=== PATIENT | male | born 1955 | race Caucasian/White ===

== ENCOUNTER 2025-02-26 07:36 | Observation (INO) ==
--- NOTE | 2024-12-29 08:33 | Anesthesiology Consultation ---
Date of Service December 29, 2024 Assessment & Plan (1) Encounter for pre-operative examination: - surgery to be cancelled until patient has repeat CTA head and neck and [place] neurology determination on if he needs to see a vascular specialist prior to proceeding with elective surgery per discussion with Dr. Valentine. Patient made aware, he states will contact his neurology office. Surgeon's office and OR made aware. - repeat CTA head and neck not in [place] E[place]. I contacted patient who states he does not believe testing was updated, cannot provide another potential location it may have been done. - cardiology office visit 10/12/24 [place]: "...Benign essential hypertension: Blood pressure is at target. Cannot tolerate beta-ariane. Will continue with valsartan 40 mg p.o. twice daily. History of aortic valve replacement with bioprosthetic valve: The valve replacement is likely functioning normally. I am going to have him get an echo since it has been more than a year and he has an upcoming surgery. Chronic combined systolic and diastolic heart failure: No evidence of volume overload. Mild LV dysfunction. Continue valsartan 40 mg p.o. twice daily. Has not required a loop diuretic. I am going to look into his prior beta-ariane use and determine his intolerance. He could not recall and his was not present to assist. We may be able to try an alternative beta-ariane at a low dose...Coronary artery disease: Status post CABG for multivessel disease. No angina. At target heart rate and blood pressure. He is on guideline directed medical therapy (except for beta-ariane)...Thoracic ascending aortic aneurysm: I will have him undergo chest CTA for surveillance... Patient completed stress echocardiogram as recommended. There was no ischemia on the stress portion of the test. There were resting echo changes involving the inferior myocardium. This would be consistent with what I suspected was a prior infarct. EF is 40 to 45%. Patient is to undergo inguinal hernia repair. This is considered an intermediate risk surgery with regard to myocardial ischemia. His stress test demonstrates low likelihood of myocardial ischemia at this time. He does have mildly reduced EF but otherwise no high risk features. Therefore, per AHA/ACC guidelines he should proceed with surgery as planned. We strongly recommend perioperative use of beta-ariane. However, he has been intolerant to metoprolol in the past. I recommend we use atenolol 25 mg one half tab daily to be given the day before, day of, and day after his surgery. His valsartan can be held or reduced by 50% for the day before, day of, and day after surgery..." - neurology office visit 01/17/24 [place]: "...Small vessel disease, cerebrovascular: h/o TIA, SVID, mod left vertebral artery stenosis, poss carotid outpouching. repeat CTA head and neck, may need to see Vascular. no new symptoms..." - Per ophthalmologist on 12/25/24: No known infectious disease contacts, current infectious disease symptoms in past 10 days or COVID positive test result in the past 30 days. Chart Review Chart Review: Pending: Refer to Additional Notes / Consult section and Patient NOT seen in Pre Admission Testing History Surgery Operation Date: 01/01/25 08:45 Proposed Procedures p Laparoscopic Left Recurrent Inguinal Hernia Repair with Mesh - Sony Marley MD Height/Weight Height: 5 ft 10 in Weight: 67.132 kg Allergies Allergy/AdvReac Type Severity Reaction Status Date / Time amoxicillin Allergy Unknown Hives Verified 12/25/24 07:32 Medications Home Medications Medication Instructions Recorded Confirmed Last Taken aspirin 81 mg tablet,delayed 81 mg PO QAM 02/26/22 12/25/24 06/14/23 release valsartan 40 mg tablet 40 mg PO BID #180 tabs 11/14/24 12/25/24 Unknown atorvastatin 40 mg tablet 40 mg PO QPM #90 tabs 12/13/24 12/25/24 Unknown sildenafil 50 mg tablet (Viagra) 50 mg PO DAILY PRN Erectile 12/25/24 12/25/24 Unknown Dysfunction Past Medical History Medical History (Updated 12/29/24 @ 08:46 by Jocy Persaud PA-C) Anxiety CAD (coronary artery disease) CABG x 4 2021, follows with Dr. To. Heart valve disease s/p 2021 TAVR History of cerebral infarction incidental finding. no residual. History of TIA (transient ischemic attack) 01/2023 HLD (hyperlipidemia) HTN (hypertension) Ischemic cardiomyopathy Poor historian Silent myocardial infarction hx Small vessel disease, cerebrovascular "TIA, SVID, mod left vertebral artery stenosis, poss carotid outpouching" per [place] neuro-see head and neck CTA from 2022 Thoracic aortic aneurysm per record. pt unable to confirm. Past Surgical History Surgical History (Updated 12/29/24 @ 08:30 by Jocy Persaud PA-C) History of aortic valve replacement Jan 2022 History of left cataract extraction History of quadruple bypass 01/2022. History of right cataract extraction Hx of inguinal hernia repair Social History Smoking Status: Current every day smoker Smoking cigarettes per day: 9-10 cigs per day > advised Do You Dip or Chew Tobacco: No Hx Alcohol Use: No Hx Substance Use: Yes substance use type: marijuana Substance Use Type Other:: advised npo Testing Laboratory Results 12/28/24 WBC: 8.3 H/H: 14/45 PLATELETS: 230,000 SODIUM: 140 POTASSIUM: 4.5 CHLORIDE: 105 CO2: 22 BUN: 22 CREATININE: 1 GLUCOSE: 104 AST: 24 Alk phos: 63 ALT: 26 Electrocardiogram Date: 10/12/24 Sinus rhythm with PACs, rate 74 bpm Left axis deviation RBBB LVH with repolarization abnormality Cannot rule out septal infarct cited on or before 02/04/23 EKG PACs and RBBB now present vs 02/04/23 EKG Echocardiogram Date: 08/30/23 EF 40-45% Abnormal diastolic function Mild global hypokinesis of LV Multiple regional wall motion abnormalities Abnormal paradoxical septal motion consistent with post-operative state Severely dilated LA Well-seated prosthetic aortic valve, normal gradient without perivalvular leak Mild to moderate TR Stress Test Date: 11/22/24 EF 40-45% There appears to be new inferior wall hypokinesis LVH with associated ST segment and T wave abnormalities RBBB First degree AVB Baseline inferior and septal wall motion abnormalities without change during stress Negative exercise stress echo and ECG for ischemia at MPHR 96% Grade II diastolic dysfunction Severely dilated LA Mildly dilated RA Well-seated prosthetic aortic valve, normal gradient Mild mitral regurgitation Mild tricuspid regurgitation Mildly dilated ascending aorta Cardiac Catheterization Date: 09/16/21 Left main: mild to moderate extraluminal calcification LAD: 99% occlusion ostium, 95% occlusion prox to mid, 90% stenosis second diagonal Cx: occlusion proximally at first major branch, 100% occlusion at mid AV groove RCA: 50-70% ostial stenosis, 50-70% stenosis distally Patient underwent subsequent CABG x 4 and aortic valve replacement Other Testing Chest CTA 10/14/24 1. Mild aneurysmal dilatation of aortic root and ascending aorta without any dissection. 2. Mild cardiomegaly. Echocardiography can be done for further assessment. 3. Centriacinar and para septal emphysematous changes both upper lobes. 4. Mildly enlarged pulmonary trunk may represents early pulmonary hypertension. Head and neck CTA 04/20/23 No acute intracranial abnormality is identified. No proximal large vessel occlusion is identified. Global volume loss and findings most commonly associated with chronic small vessel disease. Intracranial atherosclerotic disease Mild luminal narrowing of the P2 segment of the left REPORT MANAGER Mild luminal narrowing of the petrous segment of the right ICA. Focal outpouching which is directed posteromedial from the petrous segment of the right ICA that measures 5 mm which may represent an aneurysm or pseudoaneurysm mild luminal narrowing of the cavernous segment of the right ICA Moderate stenosis of the origin of the left vertebral artery Mild to moderate luminal narrowing of the V1 segment of the right vertebral artery
[2025-02-26] MEDS ORDERED: MIDAZOLAM HCL 1 MG/ML 2ML VIAL ONE (07:43)
[2025-02-26] MEDS ORDERED: LIDOCAINE 2% 2 ML VIAL/AMP(20MG/ML) INFIL ONE ×2 (07:45)
[2025-02-26] MEDS ORDERED: ONDANSETRON INJ 2 MG/ML 2 ML VIAL ONE (07:45)
[2025-02-26] MEDS ORDERED: PROPOFOL IV EMULSION 10 MG/ML 20 ML VIAL IV ONE (07:45)
[2025-02-26] MEDS ORDERED: DEXAMETHASONE SOD INJ 4 MG/ML VIAL ONE (07:45)
[2025-02-26] MEDS ORDERED: ROCURONIUM BROMIDE 10 MG/ML 5 ML VIAL IV ONE ×2 (07:45→09:53)
[2025-02-26] MEDS ORDERED: PROMETHAZINE HCL 6.25 MG in SODIUM CHLORIDE 0.9% 50 ML IV PRN (07:58)
[2025-02-26] MEDS ORDERED: ATROPINE SULFATE 0.1 MG/ML 10ML SYR IV PRN (07:58)
[2025-02-26] MEDS: LR 15ML/HR IV SCH (08:01)
--- NOTE | 2025-02-26 08:01 | Anesthesiology Consultation ---
Date of Service February 26, 2025 Assessment & Plan ASA ASA3 Proposed Anesthesia Anesthesia Type: General Risk / Benefits Reviewed With: PT / POA / Parent / Guardian, Accepts Plan and Informed Consent Obtained History Surgery Operation Date: 01/01/25 08:45 Proposed Procedures p Laparoscopic Left Recurrent Inguinal Hernia Repair with Mesh - Sony Marley MD Operation Date: 02/26/25 08:50 Proposed Procedures p Laparoscopic Left Recurrent Inguinal Hernia Repair with Mesh - Sony Marley MD Height/Weight Height: 5 ft 10 in Weight: 71.5 kg Allergies Allergy/AdvReac Type Severity Reaction Status Date / Time amoxicillin Allergy Unknown Hives Verified 02/23/25 11:23 Medications Home Medications Medication Instructions Recorded Confirmed Last Taken aspirin 81 mg tablet,delayed 81 mg PO QAM 02/26/22 02/26/25 02/25/25 09:00 release valsartan 40 mg tablet 40 mg PO BID #180 tabs 11/14/24 02/26/25 02/25/25 21:00 atorvastatin 40 mg tablet 40 mg PO QPM #90 tabs 12/13/24 02/26/25 02/25/25 21:00 sildenafil 50 mg tablet (Viagra) 50 mg PO DAILY PRN Erectile 12/25/24 02/26/25 02/19/25 Dysfunction atenolol 25 mg tablet 12.5 mg (1/2 x 25 mg) PO DAILY #2 02/23/25 02/26/25 02/26/25 06:00 tabs Active Medications Generic Name Dose Route Start Last Admin Trade Name Freq PRN Reason Stop Dose Admin Lactated Ringer's 1,000 mls @ 15 mls/hr 02/26/25 06:00 02/26/25 08:01 Lr IV 02/27/25 05:59 15 mls/hr .Q24H JULIA Administration NPO Date Last Intake of Fluids: 02/26/25 Time Last Intake of Fluids: 05:30 Date Last Intake of Solids: 02/25/25 Time Last Intake of Solids: 23:00 Past Medical History Medical History Small vessel disease, cerebrovascular "TIA, SVID, mod left vertebral artery stenosis, poss carotid outpouching" per [place] neuro-see head and neck CTA from 2022 Poor historian Thoracic aortic aneurysm 10/2024 imaging: " Aortic root size is mildly enlarged measuring approx. 3.7 cm. Enlarged sized ascending aorta noted measures approx. 3.9 cm with mild atheromatous mural thickening extending up to arch of aorta." History of cerebral infarction incidental finding. no residual. Silent myocardial infarction hx History of TIA (transient ischemic attack) multiple; most recent: 01/2023 Anxiety HLD (hyperlipidemia) HTN (hypertension) CAD (coronary artery disease) CABG x 4 2021, follows with Dr. To. Ischemic cardiomyopathy Heart valve disease s/p 2021 TAVR Exercise / Class Metabolic Activity II 4-5 Yardwork/Stairs/Walk up hill Past Family History Family History (Updated 02/23/25 @ 12:03 by Sharri Perea PA-C) Other No family history of adverse response to anesthesia Past Surgical History Surgical History Hx of inguinal hernia repair History of right cataract extraction History of left cataract extraction History of aortic valve replacement Jan 2022 History of quadruple bypass 01/2022. Past Anesthesia History No Hx of Anesthesia Complications and No Family Hx of Anesthesia Complications History of PONV No Hx of PONV and No Hx of Motion Sickness Social History Smoking Status: Current every day smoker Smoking cigarettes per day: 5-10 Do You Dip or Chew Tobacco: No Hx Alcohol Use: No Hx Substance Use: Yes substance use type: marijuana Substance Use Type Other:: advised npo Physical Exam Vital Signs Last Vital Signs Temp 36.5 C 02/26/25 07:43 Pulse 46 L 02/26/25 07:43 Resp 20 02/26/25 07:43 BP 174/95 H 02/26/25 07:43 Pulse Ox 96 02/26/25 07:43 O2 Del Method Room Air 02/26/25 07:43 Constitutional no acute distress ENMT Mouth: no dentition abnormality Thyromental Distance: > or= 3.5 Finger Breadths Mallampati Class: II Neck normal visual inspection Respiratory normal respiratory effort; no respiratory distress Auscultation: lungs clear to auscultation bilaterally Cardiovascular Rate/Rhythm: regular rate and regular rhythm Heart Sounds: no murmur Musculoskeletal Spine: normal cervical ROM Psychiatric Orientation: alert and oriented x 3 Testing Electrocardiogram Date: 10/12/24 Sinus rhythm with PACs, rate 74 bpm Left axis deviation RBBB LVH with repolarization abnormality Cannot rule out septal infarct cited on or before 02/04/23 EKG PACs and RBBB now present vs 02/04/23 EKG Echocardiogram Date: 08/30/23 EF 40-45% Abnormal diastolic function Mild global hypokinesis of LV Multiple regional wall motion abnormalities Abnormal paradoxical septal motion consistent with post-operative state Severely dilated LA Well-seated prosthetic aortic valve, normal gradient without perivalvular leak Mild to moderate TR Stress Test Date: 11/22/24 EF 40-45% There appears to be new inferior wall hypokinesis LVH with associated ST segment and T wave abnormalities RBBB First degree AVB Baseline inferior and septal wall motion abnormalities without change during stress Negative exercise stress echo and ECG for ischemia at MPHR 96% Grade II diastolic dysfunction Severely dilated LA Mildly dilated RA Well-seated prosthetic aortic valve, normal gradient Mild mitral regurgitation Mild tricuspid regurgitation Mildly dilated ascending aorta Cardiac Catheterization Date: 09/16/21 Left main: mild to moderate extraluminal calcification LAD: 99% occlusion ostium, 95% occlusion prox to mid, 90% stenosis second diagonal Cx: occlusion proximally at first major branch, 100% occlusion at mid AV groove RCA: 50-70% ostial stenosis, 50-70% stenosis distally Patient underwent subsequent CABG x 4 and aortic valve replacement Other Testing Chest CTA 10/14/24 1. Mild aneurysmal dilatation of aortic root and ascending aorta without any dissection. 2. Mild cardiomegaly. Echocardiography can be done for further assessment. 3. Centriacinar and para septal emphysematous changes both upper lobes. 4. Mildly enlarged pulmonary trunk may represents early pulmonary hypertension. Head and neck CTA 04/20/23 No acute intracranial abnormality is identified. No proximal large vessel occlusion is identified. Global volume loss and findings most commonly associated with chronic small vessel disease. Intracranial atherosclerotic disease Mild luminal narrowing of the P2 segment of the left PRESS SUPERVISOR Mild luminal narrowing of the petrous segment of the right ICA. Focal outpouching which is directed posteromedial from the petrous segment of the right ICA that measures 5 mm which may represent an aneurysm or pseudoaneurysm mild luminal narrowing of the cavernous segment of the right ICA Moderate stenosis of the origin of the left vertebral artery Mild to moderate luminal narrowing of the V1 segment of the right vertebral artery Day of Procedure Evaluation. Date of Surgery February 26, 2025 Height/Weight Height: 5 ft 10 in Weight: 71.5 kg Vital Signs Last Vital Signs Temp 36.5 C 02/26/25 07:43 Pulse 46 L 02/26/25 07:43 Resp 20 02/26/25 07:43 BP 174/95 H 02/26/25 07:43 Pulse Ox 96 02/26/25 07:43 O2 Del Method Room Air 02/26/25 07:43 Allergies Allergy/AdvReac Type Severity Reaction Status Date / Time amoxicillin Allergy Unknown Hives Verified 02/23/25 11:23 Medications Home Medications Medication Instructions Recorded Confirmed Last Taken aspirin 81 mg tablet,delayed 81 mg PO QAM 02/26/22 02/26/25 02/25/25 09:00 release valsartan 40 mg tablet 40 mg PO BID #180 tabs 11/14/24 02/26/25 02/25/25 21:00 atorvastatin 40 mg tablet 40 mg PO QPM #90 tabs 12/13/24 02/26/25 02/25/25 21:00 sildenafil 50 mg tablet (Viagra) 50 mg PO DAILY PRN Erectile 12/25/24 02/26/25 02/19/25 Dysfunction atenolol 25 mg tablet 12.5 mg (1/2 x 25 mg) PO DAILY #2 02/23/25 02/26/25 02/26/25 06:00 tabs Active Medications Generic Name Dose Route Start Last Admin Trade Name Freq PRN Reason Stop Dose Admin Lactated Ringer's 1,000 mls @ 15 mls/hr 02/26/25 06:00 02/26/25 08:01 Lr IV 02/27/25 05:59 15 mls/hr .Q24H JULIA Administration Past Anesthesia History No Hx of Anesthesia Complications and No Family Hx of Anesthesia Complications History of PONV No Hx of PONV and No Hx of Motion Sickness NPO Date Last Intake of Fluids: 02/26/25 Time Last Intake of Fluids: 05:30 Date Last Intake of Solids: 02/25/25 Time Last Intake of Solids: 23:00 Home Medications Home Medications Medication Instructions Recorded Confirmed Last Taken aspirin 81 mg tablet,delayed 81 mg PO QAM 02/26/22 02/26/25 02/25/25 09:00 release valsartan 40 mg tablet 40 mg PO BID #180 tabs 11/14/24 02/26/25 02/25/25 21:00 atorvastatin 40 mg tablet 40 mg PO QPM #90 tabs 12/13/24 02/26/25 02/25/25 21:00 sildenafil 50 mg tablet (Viagra) 50 mg PO DAILY PRN Erectile 12/25/24 02/26/25 02/19/25 Dysfunction atenolol 25 mg tablet 12.5 mg (1/2 x 25 mg) PO DAILY #2 02/23/25 02/26/25 02/26/25 06:00 tabs Active Medications Generic Name Dose Route Start Last Admin Trade Name Freq PRN Reason Stop Dose Admin Lactated Ringer's 1,000 mls @ 15 mls/hr 02/26/25 06:00 02/26/25 08:01 Lr IV 02/27/25 05:59 15 mls/hr .Q24H JULIA Administration Exercise / Class Metabolic Activity Metabolic Activity: II 4-5 Yardwork/Stairs/Walk up hill Physical Exam Constitutional: no acute distress Mouth: no dentition abnormality Thyromental Distance: > or= 3.5 Finger Breadths Mallampati Class: II Neck: + visual inspection normal Respiratory: + respiratory effort normal and + clear to auscultation bilaterally; no respiratory distress Cardiovascular: + regular rate and + regular rhythm; no murmur Musculoskeletal: no limited cervical ROM Psychiatric: + alert and + oriented x 3 ASA ASA3 Proposed Anesthesia Proposed Anesthesia: General Risk / Benefits Reviewed With: PT / POA / Parent / Guardian, Accepts Plan and Informed Consent Obtained
--- NOTE | 2025-02-26 08:36 | History & Physical Report ---
Date of Service February 26, 2025 Assessment & Plan (1) Recurrent left inguinal hernia: Plan: Recurrent left inguinal hernia. We discussed risks and benefits of a laparoscopic left inguinal hernia repair with mesh. All questions were answered. Agreeable to proceed. Consent obtained. History of Present Illness Primary Care Provider: Elmer Sigifredo Melendez 69 y/o with recurrent left inguinal hernia Allergies Allergy/AdvReac Type Severity Reaction Status Date / Time amoxicillin Allergy Unknown Hives Verified 02/23/25 11:23 Home Medications Medication Instructions Recorded Confirmed Type aspirin 81 mg tablet,delayed 81 mg PO QAM 02/26/22 02/26/25 History release valsartan 40 mg tablet 40 mg PO BID #180 tabs 11/14/24 02/26/25 Rx atorvastatin 40 mg tablet 40 mg PO QPM #90 tabs 12/13/24 02/26/25 Rx sildenafil 50 mg tablet (Viagra) 50 mg PO DAILY PRN Erectile 12/25/24 02/26/25 History Dysfunction atenolol 25 mg tablet 12.5 mg (1/2 x 25 mg) PO DAILY #2 02/23/25 02/26/25 Rx tabs Past Med/Surg History Problem List (Updated 02/26/25 @ 08:35 by Sony Marley MD) Recurrent left inguinal hernia Tachycardia Encounter for pre-operative examination Pre-operative cardiovascular exam, new EKG abnormalities c/w ischemia Benign essential hypertension Cerebellar infarct Chronic combined systolic and diastolic heart failure Atherogenic dyslipidemia Shoulder pain Thoracic ascending aortic aneurysm Coronary artery disease Medical History Small vessel disease, cerebrovascular "TIA, SVID, mod left vertebral artery stenosis, poss carotid outpouching" per [place] neuro-see head and neck CTA from 2022 Poor historian Thoracic aortic aneurysm 10/2024 imaging: " Aortic root size is mildly enlarged measuring approx. 3.7 cm. Enlarged sized ascending aorta noted measures approx. 3.9 cm with mild atheromatous mural thickening extending up to arch of aorta." History of cerebral infarction incidental finding. no residual. Silent myocardial infarction hx History of TIA (transient ischemic attack) multiple; most recent: 01/2023 Anxiety HLD (hyperlipidemia) HTN (hypertension) CAD (coronary artery disease) CABG x 4 2021, follows with Dr. To. Ischemic cardiomyopathy Heart valve disease s/p 2021 TAVR Surgical History Hx of inguinal hernia repair History of right cataract extraction History of left cataract extraction History of aortic valve replacement Jan 2022 History of quadruple bypass 01/2022. 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 Beliefs That Will Affect Care: None Current Living Situation: Family Other Information That Helps Us Care for You: No Feels Safe at Home: Yes Safety Concerns: Feels Safe At This Time Assistive Devices: Glasses Assistive Devices Comment: reading glasses Review of Systems Review of Systems: All systems reviewed & are unremarkable except as noted in HPI & below Physical Exam Constitutional: WD/WN, vitals as above Eyes: PERRL, conjunctivae normal, anicteric sclerae Neck: trachea midline, no thyromegaly Respiratory: normal respiratory effort, lungs clear to auscultation Cardiovascular: RRR, no murmur, no edema Gastrointestinal (Abdomen): normal bowel sounds, soft, nontender, no hepatosplenomegaly Skin: no rashes, warm and dry Psychiatric: A+Ox3, euthymic affect Results & Data Results & Data Vital Signs (Past 12 Hours) Vital Signs Temp Pulse Resp BP Pulse Ox O2 Del Method 02/26/25 07:43 36.5 C 46 L 20 174/95 H 96 Room Air
[2025-02-26] MEDS ORDERED: PHENYLEPHRINE 100MCG/ML 5ML SYR ONE (08:56)
[2025-02-26] MEDS ORDERED: SUGAMMADEX SODIUM 200 MG/2 ML VIAL IV ONE (09:18)
[2025-02-26] MEDS: BUPIVACAINE/EPINEPHRINE 0.25% 1:200,000 30 ML VIAL ONE (10:02)
--- NOTE | 2025-02-26 10:07 | Post Operative Brief Note ---
Immediate Post Op Note Date of Surgery February 26, 2025 Pre & Post Diagnosis Operation Date: 02/26/25 08:50 Preop: Recurrent left inguinal hernia Postop: Same I identified the patient and participated in the time-out.: Yes Procedure Operation Date: 02/26/25 08:50 laparoscopic left inguinal hernia repair with mesh Surgeon Sony Marley MD Urban Renewal Manager REBEKAH Valadez assisted with tissue retraction, camera op, closure Estimated Blood Loss 5 Findings Consistent with Post-Op Diagnosis
--- NOTE | 2025-02-26 10:11 | Operative Report ---
Post Operative Report Pre & Post Diagnosis Operation Date: 02/26/25 08:50 Pre-Op: Recurrent left inguinal hernia Postop: Same I identified the patient and participated in the time-out.: Yes Procedure Operation Date: 02/26/25 08:50 laparoscopic left recurrent inguinal hernia repair with mesh Surgeon Sony Marley MD Radiology Resident REBEKAH Valadez assisted with tissue retraction, camera op, closure Estimated Blood Loss 5 Findings Consistent with Post-Op Diagnosis large recurrent indirect left inguinal hernia Specimens none Drains none Anesthesia Type General Complications none Description of Procedure the patient was taken to the operating room, and placed supine on the operating table. A timeout was performed, perioperative antibiotics were administered, SCD boots were placed. After adequate anesthesia and analgesia was obtained, the abdomen was prepped and draped in the normal sterile fashion. A 1 cm incision was made in the supraumbilical region and carried down to the level of the fascia. The fascia was grasped with a trach hook, and a varies needle was used to enter the abdominal cavity. The abdomen was insufflated to pressure of 15 mmHg, and a 12 mm trocar was placed in this location. A 10 mm, 30 degree laparoscope was placed into the abdominal cavity, and the abdomen was surveyed. The findings were as follows: Large recurrent indirect left hernia Two 5 mm trochars were placed bilaterally under direct visualization. The patient was placed in Trendelenburg position. The peritoneum on the left side was incised with scissor cautery. This was carried out laterally. The peritoneum was then swept down away from the anterior abdominal wall towards the inguinal canal. The hernia was reduced, and care was taken to avoid injury to the inferior epigastrics and contents of the inguinal canal. Once this is complete a large left Bard 3D max mesh was brought onto the field and maneuvered down the 12 mm port. It was unfurled in the abdomen and maneuvered into position covering the inguinal region. The mesh was then secured into place with the tacker. Once this was complete, the peritoneum was closed over the top of the mesh again with the tacker. Attention was turned to hemostasis, which is excellent. All trochars were removed under direct visualization. The fascia in the 12 mm port site was closed with 0 Vicryl suture. The skin was closed with running 4-0 Monocryl subcuticular stitch. Dermabond was applied. The patient tolerated the procedure without complication, and was transferred in stable condition to the PACU. All instrument, needle, and sponge counts were correct at the end of the case. my licensed sales assistant was necessary throughout the procedure for tissue retraction, possible camera operation, and closure of the wounds. I understand that section 1842(b)(7)(D) of the Social Security act generally prohibits Medicare physician fee schedule payment for the services of assistants at surgery in teaching hospitals when qualified residents are available to furnish such services. I certify that the services for which payment is claimed were medically necessary and that no qualified resident was available to perform the services. I further understand that these services are subject to postpayment review by the Medicare carrier. I attest to the content of the Intraoperative Record and any orders documented therein. Any exceptions are noted below.
[2025-02-26] MEDS: HYDROmorphone INJ 2 MG/ML SYR/VIAL IV PRN (10:22)
[2025-02-26] MEDS: ALBUT/IPRATROP 3MG/0.5MG NEB 3 ML VIAL ONE (11:45)
--- NOTE | 2025-02-26 12:35 | XRay Report ---
XR chest 1V portable CLINICAL HISTORY: hypoxia COMPARISON STUDY: 01/27/2023 FINDINGS: There are postsurgical changes of a midline sternotomy and valvular replacement. The heart is at the upper limits of normal in size. There is mild elevation of interstitium. Underlying emphyse ma is suspected. There are progressive left basilar airspace opacities. IMPRESSION: 1. Pulmonary emphysema 2. Mild nonspecific elevation of the interstitium 3. Progressive bibasilar opacities. These could represent atelectasis, progressive interstitial lung disease, or an infectious/inflammatory process. ACT 112: Negative or not required by law. Electronically signed by: Ton Mackenzie M.D. 02/26/2025 12:34 PM
[2025-02-26] MEDS ORDERED: PROMETHAZINE 12.5 MG/50.5 ML BAG IV PRN (13:27)
[2025-02-26] MEDS ORDERED: ONDANSETRON INJ 2 MG/ML 2 ML VIAL IV PRN (13:27)
[2025-02-26] MEDS ORDERED: MoRPHine SULFATE 4 MG/ML 1 ML CARP\\VIAL IV PRN (13:33)
[2025-02-26] MEDS ORDERED: MoRPHine SULFATE 2 MG/ML CARP IV PRN (13:33)
--- NOTE | 2025-02-26 15:18 | Anesthesiology Progress Note ---
Date of Service February 26, 2025 Anesthesia Post Procedure Vital Signs Vital Signs: Temp Pulse Pulse Resp BP Pulse Ox O2 Del Method 02/26/25 15:00 48 L 17 132/79 93 Nasal Cannula 02/26/25 14:30 48 L 16 133/79 92 Nasal Cannula 02/26/25 14:00 48 L 14 134/78 92 Nasal Cannula 02/26/25 13:45 49 L 16 135/80 94 Nasal Cannula 02/26/25 13:30 48 L 19 125/81 93 Nasal Cannula 02/26/25 13:15 48 L 15 118/91 91 Nasal Cannula 02/26/25 13:00 36.6 C 48 L 15 122/70 91 Nasal Cannula 02/26/25 12:50 54 L 14 119/75 91 Nasal Cannula 02/26/25 12:40 48 L 19 125/77 89 L Nasal Cannula 02/26/25 12:30 49 L 10 L 127/79 91 Nasal Cannula 02/26/25 12:20 49 L 17 132/79 92 Nasal Cannula 02/26/25 12:20 49 L 17 132/79 91 Nasal Cannula 02/26/25 12:10 54 L 21 136/78 93 Nasal Cannula 02/26/25 12:00 36.7 C 59 L 12 113/67 83 L Room Air 02/26/25 11:50 50 L 11 L 109/72 96 Nebulizer 02/26/25 11:40 51 L 15 117/65 92 Nasal Cannula 02/26/25 11:30 48 L 12 124/80 89 L Room Air 02/26/25 11:20 53 L 8 L 115/74 91 Room Air 02/26/25 11:10 53 L 11 L 134/77 95 Nasal Cannula 02/26/25 11:00 50 L 15 137/77 96 Nasal Cannula 02/26/25 10:50 52 L 13 168/86 H 97 Nasal Cannula 02/26/25 10:40 49 L 15 161/90 H 92 Room Air 02/26/25 10:30 53 L 17 161/86 H 96 Room Air 02/26/25 10:20 52 L 14 175/106 H 98 Oxymask 02/26/25 10:18 36 C L 53 L 12 187/117 H 96 Oxymask 02/26/25 07:43 36.5 C 46 L 20 174/95 H 96 Room Air O2 Flow Rate 02/26/25 15:00 2 02/26/25 14:30 2 02/26/25 14:00 2 02/26/25 13:45 2 02/26/25 13:30 3 02/26/25 13:15 3 02/26/25 13:00 2 02/26/25 12:50 2 02/26/25 12:40 2 02/26/25 12:30 2 02/26/25 12:20 4 02/26/25 12:20 2 02/26/25 12:10 3 02/26/25 12:00 02/26/25 11:50 10 02/26/25 11:40 02/26/25 11:30 02/26/25 11:20 02/26/25 11:10 2 02/26/25 11:00 3 02/26/25 10:50 3 02/26/25 10:40 02/26/25 10:30 02/26/25 10:20 7 02/26/25 10:18 7 02/26/25 07:43 Pain Intensity Abdomen: Pain Intensity: 4 Transfer of Care Handoff Completed per policy Notes Mental Status: alert / awake / arousable and participated in evaluation Nausea / Vomiting: adequately controlled Pain: adequately controlled Airway Patency, RR, SpO2: see Notes below (Pt with desaturation on room air in the PACU. Ongoing supplemental O2 NC requirement. ) BP & HR: stable & adequate Hydration State: stable & adequate Anesthetic Complications: no major complications apparent and Pt Satisfied with anesthetic care Notes: Chest x ray showed bibasilar opacites (atelectasis vs inflammatory). Patient is stable on 2 LPM nasal cannula in the PACU. Treated with Duoneb nebulizer for occasional wheeze. He will be admitted for further evaluation.
[2025-02-26] MEDS: ALBUT/IPRATROP 3MG/0.5MG NEB 3 ML VIAL NEB STA (16:29)
[2025-02-26] MEDS ORDERED: ALBUT/IPRATROP 3MG/0.5MG NEB 3 ML VIAL NEB PRN (16:47)
[2025-02-26] MEDS: ACETAMINOPHEN 1,000 MG/100 ML VIAL IV SCH (16:56)
[2025-02-26] MEDS ORDERED: NICOTINE 14 MG/24 HR PATCH TD PRN (16:57)
--- NOTE | 2025-02-26 16:57 | Consultation ---
Date of Consultation February 26, 2025 Assessment & Plan (1) Postoperative hypoxia: (2) Emphysematous COPD: (3) Chronic heart failure with mildly reduced ejection fraction (HFmrEF, 41- 49%): (4) Recurrent left inguinal hernia: (5) Benign essential hypertension: (6) Coronary artery disease: (7) Heart valve disease: Plan Patient 72-year-old gentleman with longstanding history of's smoking with some mild postoperative hypoxia most likely due to anesthesia, pain medications, pain limiting deep breathing is in the setting of emphysema. Continue oxygen support titrate off as able, goal O2 sat would be greater than 88% Encourage incentive spirometry Trial of DuoNeb Saline lock IV fluids Pain control to allow for deep inspiration Encouraged activity Discussed with patient and significant other at bedside findings on chest x-ray of emphysema, could consider outpatient PFTs through his PCP or consider outpatient pulmonary consultation. Strongly encouraged patient to stop smoking History of Present Illness Requesting Physician: Dr. Sony Marley Reason for Consultation: Postoperative hypoxia Attending Physician: Sony Marley MD History of Present Illness Patient 69-year-old gentleman who presented to [facility] earlier today under the service of Dr. Marley to undergo repair of a recurrent left inguinal hernia. We are asked to see the patient postoperatively due to some oxygen requirements which is new for the patient. Time my evaluation the patient is stating he has some surgical incision pain. He really denies any significant shortness of breath. No wheezing. No chest pain. He denies any chills or rigors. He states that he has never needed inhalers in the past even when he is gotten a cold or bronchitis. He has greater than a 50-year smoking history and continues to smoke at least a half a pack a day. He has never been told he has any lung issues that he is aware of. Does have a history of a aortic valve replacement. Had extensive cardiac evaluation prior to today's surgery. This included stress echo which showed a stable ejection fraction of 40 to 45%. He states he has never had any issues with heart failure or swelling in his legs. Allergies Allergy/AdvReac Type Severity Reaction Status Date / Time amoxicillin Allergy Unknown Hives Verified 02/23/25 11:23 Home Medications Medication Instructions Recorded Confirmed Type aspirin 81 mg tablet,delayed 81 mg PO QAM 02/26/22 02/26/25 History release valsartan 40 mg tablet 40 mg PO BID #180 tabs 11/14/24 02/26/25 Rx atorvastatin 40 mg tablet 40 mg PO QPM #90 tabs 12/13/24 02/26/25 Rx sildenafil 50 mg tablet (Viagra) 50 mg PO DAILY PRN Erectile 12/25/24 02/26/25 History Dysfunction atenolol 25 mg tablet 12.5 mg (1/2 x 25 mg) PO DAILY #2 02/23/25 02/26/25 Rx tabs oxycodone-acetaminophen 5 mg-325 1 tab PO Q6H PRN pain #12 tabs 02/26/25 Rx mg tablet Patient History Medical History Small vessel disease, cerebrovascular "TIA, SVID, mod left vertebral artery stenosis, poss carotid outpouching" per [place] neuro-see head and neck CTA from 2022 Poor historian Thoracic aortic aneurysm 10/2024 imaging: " Aortic root size is mildly enlarged measuring approx. 3.7 cm. Enlarged sized ascending aorta noted measures approx. 3.9 cm with mild atheromatous mural thickening extending up to arch of aorta." History of cerebral infarction incidental finding. no residual. Silent myocardial infarction hx History of TIA (transient ischemic attack) multiple; most recent: 01/2023 Anxiety HLD (hyperlipidemia) HTN (hypertension) CAD (coronary artery disease) CABG x 4 2021, follows with Dr. To. Ischemic cardiomyopathy Heart valve disease s/p 2021 TAVR Surgical History Hx of inguinal hernia repair History of right cataract extraction History of left cataract extraction History of aortic valve replacement Jan 2022 History of quadruple bypass 01/2022. Family History Other No family history of adverse response to anesthesia Social History Smoking Status: Current every day smoker Tobacco Type: Cigarettes packs per day: 0.5; Cigarettes Per Day: 5-10; Second Hand Exposure: No; Do You Dip or Chew Tobacco: No; Tobacco Cessation Education Requested by Patient: No Hx Alcohol Use: No Hx Substance Use: Yes Prescribed Medications: Marijuana Substance Use Type Other:: advised npo Preferred Language: Sinhala Communication Ability: Effective Dressage Judge Required: No Beliefs That Will Affect Care: None Current Living Situation: Family Other Information That Helps Us Care for You: No Feels Safe at Home: Yes Safety Concerns: Feels Safe At This Time Assistive Devices: Glasses Assistive Devices Comment: reading glasses Review of Systems Review of Systems: Pertinent positive and negative review of systems as mentioned in the HPI Physical Exam Physical Exam: Constitutional: Alert, moderate distress due to surgical pain HEENT: Mucous membranes moist. Lungs: Decreased breath sounds, prolonged expiratory phase, few crackles at bases, no rhonchi, no wheezing CV: S1-S2, regular Abdomen: Soft, diffuse tenderness, Extremities: No significant edema Neuro: No focal deficits Psych: Cooperative, normal mood Results & Data Vital Signs (Past 12 Hours) Vital Signs Temp Pulse Pulse Resp BP Pulse Ox O2 Del Method 02/26/25 16:29 Nasal Cannula 02/26/25 16:25 36.6 C 54 L 16 151/81 H 94 Nasal Cannula 02/26/25 16:06 36.4 C L 53 L 16 147/83 H 93 Nasal Cannula 02/26/25 15:56 93 Nasal Cannula 02/26/25 15:29 49 L 10 L 124/89 90 Room Air 02/26/25 15:00 48 L 17 132/79 93 Nasal Cannula 02/26/25 14:30 48 L 16 133/79 92 Nasal Cannula 02/26/25 14:00 48 L 14 134/78 92 Nasal Cannula 02/26/25 13:45 49 L 16 135/80 94 Nasal Cannula 02/26/25 13:30 48 L 19 125/81 93 Nasal Cannula 02/26/25 13:15 48 L 15 118/91 91 Nasal Cannula 02/26/25 13:00 36.6 C 48 L 15 122/70 91 Nasal Cannula 02/26/25 12:50 54 L 14 119/75 91 Nasal Cannula 02/26/25 12:40 48 L 19 125/77 89 L Nasal Cannula 02/26/25 12:30 49 L 10 L 127/79 91 Nasal Cannula 02/26/25 12:20 49 L 17 132/79 92 Nasal Cannula 02/26/25 12:20 49 L 17 132/79 91 Nasal Cannula 02/26/25 12:10 54 L 21 136/78 93 Nasal Cannula 02/26/25 12:00 36.7 C 59 L 12 113/67 83 L Room Air 02/26/25 11:50 50 L 11 L 109/72 96 Nebulizer 02/26/25 11:40 51 L 15 117/65 92 Nasal Cannula 02/26/25 11:30 48 L 12 124/80 89 L Room Air 02/26/25 11:20 53 L 8 L 115/74 91 Room Air 02/26/25 11:10 53 L 11 L 134/77 95 Nasal Cannula 02/26/25 11:00 50 L 15 137/77 96 Nasal Cannula 02/26/25 10:50 52 L 13 168/86 H 97 Nasal Cannula 02/26/25 10:40 49 L 15 161/90 H 92 Room Air 02/26/25 10:30 53 L 17 161/86 H 96 Room Air 02/26/25 10:20 52 L 14 175/106 H 98 Oxymask 02/26/25 10:18 36 C L 53 L 12 187/117 H 96 Oxymask 02/26/25 07:43 36.5 C 46 L 20 174/95 H 96 Room Air O2 Flow Rate 02/26/25 16:29 3 02/26/25 16:25 2 02/26/25 16:06 3 02/26/25 15:56 3 02/26/25 15:29 02/26/25 15:00 2 02/26/25 14:30 2 02/26/25 14:00 2 02/26/25 13:45 2 02/26/25 13:30 3 02/26/25 13:15 3 02/26/25 13:00 2 02/26/25 12:50 2 02/26/25 12:40 2 02/26/25 12:30 2 02/26/25 12:20 4 02/26/25 12:20 2 02/26/25 12:10 3 02/26/25 12:00 02/26/25 11:50 10 02/26/25 11:40 02/26/25 11:30 02/26/25 11:20 02/26/25 11:10 2 02/26/25 11:00 3 02/26/25 10:50 3 02/26/25 10:40 02/26/25 10:30 02/26/25 10:20 7 02/26/25 10:18 7 02/26/25 07:43 Diagnostic Findings Reviewed imaging, laboratory and diagnostic studies. Pertinent findings as below. Reviewed outpatient stress echo and echocardiogram Personally reviewed chest x-ray done today: No consolidative infiltrate, no significant edema, some mild atelectasis at the bases, hyperinflated lungs consistent with emphysema
[2025-02-26] MEDS: KETOROLAC TROMETHAMINE 15 MG/ML VIAL IV PRN (19:53)
[2025-02-26] MEDS: VALSARTAN 80 MG TAB PO SCH (19:54)
[2025-02-26] MEDS: ATORVASTATIN 40 MG TAB PO SCH (19:54)
[2025-02-27 07:46] VITALS: BP 150/89; RESP 18; TEMP 98.2; O2SAT 95
[2025-02-27] MEDS: REMOVE NICODERM PATCH SCH (08:29)
[2025-02-27] MEDS: ASPIRIN 81 MG ECTAB PO SCH (08:30)
[2025-02-27] MEDS: ATENOLOL 25 MG TABLET PO SCH (08:31)
--- NOTE | 2025-02-27 10:12 | Hospitalist Progress Note ---
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 (HFmrEF, 41- 49%): (4) Recurrent left inguinal hernia: (5) Benign essential hypertension: (6) Coronary artery disease: (7) Heart valve disease: Plan #L inguinal hernia repair -POD 1 -Doing well and without complaints -Surgery sending home today, no medical contraindication for DC -management per surgery #Sinus bradycardia -Asymptomatic -Consistently bradycardic -Reported to be On atenolol 12.5 at home -Reviewed EP note from 10/12/24 and he has reported ""BB intolerance" -He was then started on atenolol 12.5 by EP after that visit -Would favor holding atenolol and have him follow up with PCP and/or cardio in one week to discuss alternatives #HTN -Continue home valsartan, this could be increased during next PCP follow up if needed since his BB is held #Chronic combined HF -Euvolemic -Management per OP cardiology -Not on diuretic #CAD s/p CABG -Stable no chest pain I spent a total of 45 minutes coordinating, documenting, and providing care for this patient excluding time spent in the performance of separately billed services. This included personally reviewing all current laboratories and imaging studies, medical reconciliation, outpatient chart review and discussion with specialists Admission and Anticipated Discharge Date Admission Date: February 26, 2025 Subjective feeling well today and wishes to go home. he has no complaints. urinating without issue. passing gas. eating. Results & Data Results & Data Vital Signs (Past 12 Hours) Vital Signs Temp Pulse Resp BP Pulse Ox O2 Del Method O2 Flow Rate 02/27/25 07:00 36.8 C 54 L 18 150/89 H 95 Room Air 02/27/25 03:00 36.6 C 52 L 16 124/75 93 Room Air 02/26/25 23:53 36.9 C 51 L 16 113/74 94 Nasal Cannula 2
--- NOTE | 2025-02-27 10:22 | Discharge Summary ---
Date of Service February 27, 2025 Admission HPI Per Admitting Provider 69 y/o with recurrent left inguinal hernia Principal Diagnosis Recurrent left inguinal hernia Discharge Exam Constitutional WD/WN, vitals as above cooperative and comfortable; no acute distress and not ill appearing Respiratory normal respiratory effort; no respiratory distress, no labored breathing and no retractions on room air Gastrointestinal (Abdomen) Inspection/Auscultation: abdomen normal to inspection, + abdominal wall ecchymosis (at umbilical site) and + abdominal surgical incision (c/d/i with dermabond); abdomen not distended Percussion/Palpation: + abdomen tender (mild at incision sites) and abdomen soft; no guarding, abdomen not rigid and abdomen not firm Skin no rashes, warm and dry Psychiatric Orientation: alert and oriented x 3 Discharge Data Allergies Allergy/AdvReac Type Severity Reaction Status Date / Time amoxicillin Allergy Unknown Hives Verified 02/23/25 11:23 Consultations 02/26/25 16:19 Consult Hospitalist Routine Procedures Performed Operation Date: 02/26/25 08:50 Actual Procedures p Laparoscopic Left Recurrent Inguinal Hernia Repair with Mesh(Left) - Sony Marley MD Hospital Course (1) Recurrent left inguinal hernia: (2) Emphysematous COPD: (3) Postoperative hypoxia: Plan Patient taken to operating room for laparoscoic recurrent left inguinal hernia repair by Dr. Marley on 02/26/2025. No intraoperative complications and tolerated procedure without difficulty. Postoperatively he was having moderate to severe abdominal pain with hypoxia and oxygen saturations were low in high 80's on room air, requiring supplemental O2 via nasal cannula. CXR showed bibasilar densities and emphysema. He was admitted for observation overnight given postperative hypoxia. Hospitalist consulted. POD # 1 avss, slightly bradycardic but asymptomatic. Oxygen saturations 95% on room air not requiring further O2 supplementation. Pain controlled. Tolerated diet. He was discharged home on POD # 1 in stable condition. Advised to hold Atenolol for 1 week and follow-up with PCP. Total Time Total Time Spent Total Time Spent (In Minutes): 30 Total Time Includes: Examination of the Patient, Discharge Planning, Medication Reconciliation and Communication With Other Providers Discharge Plan Discharge Items Patient Disposition: Home - Self-Care Reason For Visit: Recurrent Left Inguinal Hernia Discharge Diagnosis: Recurrent left inguinal hernia Activity: Per Instructions section Non-emergency contact: Primary Care Provider and Surgeon Call non-emergency contact if: you have any medication questions, your pain is not controlled, your pain is concerning for you, you have a fever, your temperature is above 101, your wound has increased redness, your wound has inc reased drainage and your wound pain has increased Follow-up/Referrals: Sony Marley MD [Physician] - Elmer Melendez M.D. [Primary Care Provider] - Diet: Regular Addtl Attending Provider Instructions: ACTIVITY RECOMMENDATIONS: * Walk as much as possible. * No heavy lifting (>10 lbs.) for 6 weeks. SPECIAL CARE INSTRUCTIONS: * Ice to hernia repair site on and off until bedtime tonight. * May shower in 24 hours. Let water run over area and pat dry. * Leave steri strips on for one week. * Call the surgeon's office with any questions or concerns - (ex. temperature higher than 101 degrees F, excessive bleeding or pain). MEDICATIONS: Resume previous medications unless instructed otherwise by your surgeon. * Ibuprofen 600 mg every 6 hours with food * Percocet 1 every 4 hours, as needed for pain HOLD your Atenolol for 1 week and follow -up with your Primary care doctor given your low heart rate while inpatient. FOLLOW UP VISIT: If not already scheduled, please call the office to schedule a two week follow- up appointment. Office number Pending Studies at Discharge: No Stand-Alone Forms: My [facility] Medications and DC Order Prescriptions: New oxycodone-acetaminophen 5-325 mg tablet 1 tab PO Q6H PRN (Reason: pain) Qty: 12 0RF Continued atorvastatin 40 mg tablet 40 mg PO QPM Qty: 90 3RF aspirin 81 mg tablet,delayed release (DR/EC) 81 mg PO QAM valsartan 40 mg tablet 40 mg PO BID Qty: 180 3RF sildenafil [Viagra] 50 mg Tablet 50 mg PO DAILY PRN (Reason: Erectile Dysfunction) Rx Instructions: administer 30 minutes to 4 hours before activity Held atenolol 25 mg tablet 12.5 mg PO DAILY Qty: 2 0RF Hold Instructions: Hold for 1 week and follow-up with your PCP Rx Instructions: Take half tab day prior to, day of, and day after surgery. Discharge Orders: Discharge Order (Routine); Ordered 02/27/25 Ordered By: Porsha Valadez Admission Data Admit Date/Time: 02/26/25 13:27 Attending Provider: Sony Marley Admit Provider: Sony Marley Primary Care Provider: Elmer Melendez Other Providers: Eden Rendon; Jhoana Ayala I.; Prosper Mendez; Kimberly Delacruz; Zulma Ward; Hortensia Mcnamara; Princess Henderson; Rudolph Richards; Willam Arroyo; Jefe Plata; Leroy Rodriguez; Talita Borja; Mikey Retana; Kellen Batres; Fátima Farley; Carolann Ruiz; Shital Jimenez; Karolina Mckeon I.; Freddie Asif; Namita Raymundo; Paula Fernandez; Neil Carlson.; Aiden Mohr; Damon Cramer; Micki Schulz; Mary Ordaz; Panda Herzog; Robinson Duke S; Flavio Deng; Freddie Monsalve; Sherlyn Perea; Wellington Marie; Caitlin Galicia; Jessy Hawk; Jessy Membreno; Saurav Goldstein; Ashish Hopkins
[2025-02-27 10:30] VITALS: PULSE 62
== END 2025-02-27 11:00 | disposition home or self-care (01) ==
LOC: ASU 07:36 → 3N 07:36